=== PATIENT | male | born 1940 ===

== ENCOUNTER 2020-11-27 11:45 | Inpatient (IN) | payer OTHER ==
[~2020-11-27] VITALS: Ht 165.1 cm; Wt 47.6 kg
[2020-11-27] MEDS ORDERED: GLIPIZIDE ER5 MG PO (13:13)
[2020-11-27] MEDS ORDERED: ZOCOR20 MG PO (13:14)
[2020-11-27] MEDS ORDERED: LEVO-T112 MCG PO (13:14)
[2020-11-27] MEDS ORDERED: METFORMIN HCL500 M3 PO (13:14)
[2020-11-27] MEDS ORDERED: PEPCID AC20 MG PO (13:14)
[2020-11-27] MEDS ORDERED: GABAPENTIN100 M2 PO (13:15)
[2020-11-27] MEDS ORDERED: QUINAPRIL HCL20 MG PO (13:15)
[2020-11-27] MEDS ORDERED: MULTIPLE VITAM1 EAC2 PO (13:15)
[2020-11-27] MEDS ORDERED: INTEGRA F CAPS1 EACH PO (13:16)
[2020-11-27] MEDS ORDERED: FOLIC ACID1 MG PO (13:16)
[2020-11-30] MEDS ORDERED: METOPROLOL SUCC50 MG (07:55)
[2020-11-30] MEDS ORDERED: PANTOPRAZOLE SO40 MG (07:55)
[2020-12-11] MEDS ORDERED: HYOSCYAMINE0.125 M1 SL (09:53)
[2020-12-11] MEDS ORDERED: PROTONIX40 MG PO (09:54)
[2020-12-11] MEDS ORDERED: INTESTINEX680 M1 PO (09:54)
[2020-12-11] MEDS ORDERED: ULTRACET PO (09:54)
== END 2020-12-11 17:32 | disposition home or self-care (01) | DRG 329 ==
LOC: O/R 11-30 06:30 → SURH 11-30 06:30 → SURG 11-30 13:23 → SURH 11-30 13:45
PROVIDERS: ADMIT Surgery; ATTEND Surgery
PROC: 07BC4ZX Excision of Pelvis Lymphatic, Percutaneous Endoscopic Approach, Diagnostic (ICD-10-PCS; 2020-11-30)
PROC: 0DTF4ZZ Resection of Right Large Intestine, Percutaneous Endoscopic Approach (ICD-10-PCS; principal; 2020-11-30 15:45)
PROC: 02HV33Z Insertion of Infusion Device into Superior Vena Cava, Percutaneous Approach (ICD-10-PCS; 2020-12-04)
PROC: 4A12X4Z Monitoring of Cardiac Electrical Activity, External Approach (ICD-10-PCS; 2020-12-04)
PROC: 30233N1 Transfusion of Nonautologous Red Blood Cells into Peripheral Vein, Percutaneous Approach (ICD-10-PCS; 2020-12-07)
DX: C18.4 Malignant neoplasm of transverse colon (principal); J69.0 Pneumonitis due to inhalation of food and vomit; D62 Acute posthemorrhagic anemia; K56.7 Ileus, unspecified; J95.89 Other postprocedural complications and disorders of respiratory system, not elsewhere classified; I47.1 Supraventricular tachycardia; R09.02 Hypoxemia; E03.8 Other specified hypothyroidism; Z79.84 Long term (current) use of oral hypoglycemic drugs; E11.65 Type 2 diabetes mellitus with hyperglycemia; Z20.822 Contact with and (suspected) exposure to COVID-19